=== PATIENT | male | born 1995 | race Caucasian/White ===

== ENCOUNTER 2017-02-09 19:50 | Emergency (ER) | payer OTHER ==
[~2017-02-09] VITALS: Ht 172.7 cm; Wt 79.7 kg
[2017-02-09 19:54] VITALS: TEMP 37.5; Ht 172.7 cm; Wt 79.7 kg
[2017-02-09] MEDS ORDERED: FEXO1TAB49 PO (20:02)
--- NOTE | 2017-02-09 20:32 | DIAGNOSTIC IMAGING REPORT ---
LEFT KNEE 3 VIEWS CLINICAL HISTORY: Left knee pain status post trauma COMPARISON: None. DISCUSSION: 3 views reveal no acute fractures or dislocations. IMPRESSION: No fractures identified. Electronically signed by: Haresh Cabrera M.D. 02/09/2017 8:30 PM Dictated Date/Time: 02/09/2017 8:30 PM
--- NOTE | 2017-02-09 20:50 | EMERGENCY ROOM VISIT NOTE ---
ED Visit Note First contact with patient: 19:57 CHIEF COMPLAINT: knee pain HISTORY OF PRESENT ILLNESS: This 22-year-old male patient presents to the emergency department ambulatory after sustaining an injury to the left knee just prior to arrival. The patient states that he was at martial arts and had planted his leg, when his knee "went out." He states he heard a pop in the knee. The patient denies any other injuries besides their knee. The patient denies swelling or bruising. There is pain along the outside of the knee. They rate the pain as sharp and 3/10. The patient states they are able to walk on it, but the knee does feel very weak. No numbness or tingling. No previous injuries to this knee. No ankle, foot or hip pain. REVIEW OF SYSTEMS: A 6 system review of systems was completed with positives and pertinent negatives listed in the HPI. ALLERGIES: No known drug allergies MEDICATIONS: Nathalie PMH: Seasonal allergies SOCIAL HISTORY: The patient is a [employer] student and lives with roommates. Nonsmoker, admits to occasional alcohol use. PHYSICAL EXAM: Vital Signs: Reviewed Nurse's notes, vital signs stable. GENERAL : This is a 22-year-old male, no acute distress, but appears in pain, well- developed, well-nourished. MENTAL STATUS: Alert, oriented to person place and time, and cooperative. MUSCULOSKELETAL: The left knee is not swollen. There is no ecchymosis. There is no joint effusion present. The patient is tender along the lateral aspect of the knee. Range of motion is full. Strength of the quads and hamstrings is 5/5. Malaika's is negative. Sharlene's and Anterior Drawer tests are negative. There is mild laxity with varus stressing, no laxity with valgus stressing. The foot and toes are warm and well-perfused. Dorsalis pedis pulse 2+. Sensation to pain and light touch is intact. Capillary refill less than 2 seconds. RADIOGRAPHIC FINDINGS: LEFT KNEE 3 VIEWS CLINICAL HISTORY: Left knee pain status post trauma COMPARISON: None. DISCUSSION: 3 views reveal no acute fractures or dislocations. IMPRESSION: No fractures identified. EMERGENCY DEPARTMENT COURSE: I examined the patient. X-rays of the left knee were reviewed by myself and read by radiology and reveal no acute findings. The patient was placed in an Miguel wrap under my direction and the position was satisfactory. The patient was instructed on the use of crutches. He will follow-up with his own orthopedist tomorrow. The patient was discharged home in good condition. DIAGNOSIS: Left knee injury Current/Historical Medications Scheduled PRN Fexofenadine Hcl (Nathalie Allergy), 180 MG PO DAILY PRN for Allergy Symptoms Allergies Coded Allergies: No Known Allergies (Unverified , 02/09/17) Vital Signs Date Time Temp Pulse Resp B/P Pulse Ox O2 Delivery O2 Flow Rate FiO2 02/09/17 20:58 80 18 111/65 99 02/09/17 19:54 37.5 85 18 128/65 98 Room Air Departure Information Impression Primary Impression: Injury of left knee Dispostion Home / Self-Care Condition GOOD Referrals Lamin Alcaraz M.D. (PCP) Patient Instructions My [facility] Additional Instructions You have been treated in the Emergency Department for Knee Pain. For pain control, you can use the following [id number] medicines (if >12 yo): - Regular strength (325mg/tab) Tylenol (acetaminophen) 2 tabs every 4-6 hours as needed. Do not exceed 12 tablets in a 24 hour period. Avoid taking more than 4 grams (4000 mg) of Tylenol per day. This includes any other sources of acetaminophen you may take on a regular basis. - Regular strength (200 mg/tab) Advil (ibuprofen) 1-2 tabs every 4-6 hours as needed. Do not exceed a dose of 3200 mg per day. If this is a recent injury (<24 hrs), ice can be applied to the area of pain for the first 3 days to help decrease pain and inflammation. Ice massages can be performed by freezing water in a paper cup, peeling back the cup to expose the ice and then massaging over the affected area. You have been provided the number for an Orthopaedic Surgeon. You should call this number as soon as possible to establish a follow-up visit from today's Emergency Department visit. Remain nonweightbearing until follow-up with orthopedics tomorrow. Return to the Emergency Department if your current symptoms worsen despite treatment course outlined above.
[2017-02-09 20:58] VITALS: BP 111/65; PULSE 80; O2SAT 99
== END 2017-02-09 20:59 | disposition home or self-care (01) ==
LOC: C.EDB 19:53 → C.EDD 20:59
DX: S89.92XA Unspecified injury of left lower leg, initial encounter (principal); X50.9XXA Other and unspecified overexertion or strenuous movements or postures, initial encounter; Y93.75 Activity, martial arts

== ENCOUNTER → 2017-02-14 | Outpatient (CLI) | payer OTHER ==
[~2017-02-14] MED LIST: FEXO1TAB49 PO
--- NOTE | 2017-02-14 09:20 | DIAGNOSTIC IMAGING REPORT ---
MRI THE LEFT KNEE NO CONTRAST CLINICAL HISTORY: Left lateral knee pain COMPARISON STUDY: Conventional radiographic study dated 02/09/2017 FINDINGS: Imaging was performed in the sagittal, coronal, and axial planes. There are no areas of marrow edema to indicate occult fracture or bone bruise. There is abnormal signal within the posterior horn the medial meniscus which reaches the inferior meniscal surface. This is felt to represent a tear. No tears of the lateral meniscus are visualized. The anterior and posterior cruciate ligaments appear intact. The patellar and quadriceps tendons appear intact. The patellar retinacular structures appear intact. There is edema within the popliteus muscle consistent with a strain. There is mild edema within the lateral collateral ligament indicative of a partial tear/strain. The medial collateral ligament appears intact. There is a small joint effusion. IMPRESSION: 1. Tear of the posterior horn the medial meniscus 2. Popliteus muscle strain 3. Partial tear/strain of the lateral collateral ligament Electronically signed by: Haresh Cabrera M.D. 02/14/2017 9:19 AM Dictated Date/Time: 02/14/2017 9:09 AM
== END | disposition home or self-care (01) ==
LOC: C.MRI 08:00
PROVIDERS: ATTEND Family Medicine Sports Medicine
DX: M25.562 Pain in left knee (principal); S83.242A Other tear of medial meniscus, current injury, left knee, initial encounter; S86.812A Strain of other muscle(s) and tendon(s) at lower leg level, left leg, initial encounter; S83.422A Sprain of lateral collateral ligament of left knee, initial encounter; X58.XXXA Exposure to other specified factors, initial encounter